=== PATIENT | female | born 1975 | race Caucasian/White ===

== ENCOUNTER → 2023-09-27 | Outpatient (CLI) | payer OTHER | LOC: LAB SHORT 13:22 → LAB 13:22 | DX: N93.9 Abnormal uterine and vaginal bleeding, unspecified (principal); N85.8 Other specified noninflammatory disorders of uterus | CPT/HCPCS: 88305 ==

== ENCOUNTER 2023-11-04 13:09 | Observation (INO) | payer OTHER ==
[~2023-11-04] VITALS: Ht 165.1 cm; Wt 99.8 kg
[~2023-11-04 13:09] MED LIST: Percocet 5-3251 EACH PO
[2023-11-04] MEDS ORDERED: Ondansetron HCl 2 MG / ML 2ML Vial IV ONE (13:25)
[2023-11-04] MEDS ORDERED: NS 1,000 ML IV SCH ×2 (13:25→14:20)
[2023-11-04] MEDS ORDERED: HYDROmorphone HCl/Pf 1MG SYR IV ONE (14:20)
[2023-11-04 14:27] LABS: BASOPHILS ABSOLUTE AUTO 0.08 K/mm3 (0.00-0.23); BASOPHILS PERCENT AUTO 1 % (0-2); EOSINOPHILS ABSOLUTE AUTO 0.04 K/mm3 (0.00-0.68); EOSINOPHILS PERCENT AUTO 1 % (0-6); Hematocrit 49.4 % (33.0-51.0); Hemoglobin 16.9 g/dL (11.5-16.0); IMMATURE GRAN ABSOLUTE AUTO 0.03 K/mm3 (0.00-0.10); IMMATURE GRAN PERCENT AUTO 0 % (0-1); LYMPHOCYTES ABSOLUTE AUTO 1.64 K/mm3 (0.84-5.20); LYMPHOCYTES PERCENT AUTO 19 % (21-46); MONOCYTES ABSOLUTE AUTO 0.42 K/mm3 (0.16-1.47); MONOCYTES PERCENT AUTO 5 % (4-13); Mean Corpuscular HGB 28.9 pg (26.0-34.0); Mean Corpuscular HGB Conc 34.2 g/dL (31.5-36.5); Mean Corpuscular Volume 85 fL (80-100); Mean Platelet Volume 9.6 fL (9.1-12.4); NEUTROPHILS ABSOLUTE AUTO 6.49 K/mm3 (1.96-9.15); NEUTROPHILS PERCENT AUTO 75 % (41-73); Platelet Count 354 K/mm3 (150-400); RDW Coefficient Variation 12.4 % (11.7-14.2); RDW Standard Deviation 37.8 fL (35.1-46.3); Red Blood Cell Count 5.84 M/mm3 (3.80-5.20)
[2023-11-04 14:46] LABS: Albumin, Blood 4.5 g/dL (3.4-5.0); Albumin/Globulin Ratio 1.2 (0.8-1.8); Bilirubin, Total 0.6 mg/dL (0.1-1.0); Calcium, Blood 9.7 mg/dL (8.5-10.1); Creatinine, Blood 0.65 mg/dL (0.40-1.00); Globulin, Blood 3.7 g/dL (2.2-4.0); Total Protein, Blood 8.2 g/dL (6.4-8.2)
[2023-11-04] MEDS ORDERED: Lactated Ringer's 1,000 ML IV SCH (16:25)
[2023-11-04] MEDS ORDERED: OxyCODONE 5 mg/Acetamin 325 mg TABLET PO PRN (16:25)
[2023-11-04] MEDS ORDERED: CeFAZolin Sodium 2,000 MG in NS 100 ML IV SCH (16:30)
[2023-11-04] MEDS ORDERED: Ketorolac Tromethamine 30mg Vial IV PRN (16:30)
[2023-11-04] MEDS ORDERED: Ondansetron HCl 2 MG / ML 2ML Vial IV PRN (16:30)
[2023-11-04 18:59] VITALS: BP 152/98
[2023-11-04 19:59] VITALS: BP 128/72
[2023-11-04] MEDS ORDERED: LEVOTHYROXINE50 MC9 PO (22:50)
[2023-11-04] MEDS ORDERED: LIOT5 PO (22:51)
[2023-11-04] MEDS ORDERED: PROG100 PO (22:53)
[2023-11-05] VITALS (13 sets, daily range): BP systolic 101–146; BP diastolic 48–97
[2023-11-05 05:13] LABS: Source, Urine Clean Catch
--- NOTE | 2023-11-05 05:15 | NUR ---
SHIFT SUMMARY PT ER ADMIT AT SHIFT CHANGE FOR ACUTE ANITA. PT HAS RESTED OFF AND ON T/O THE NIGHT. INTERMITTENT PAIN AND NAUSEA RELEIVED WITH MEDS PER EMAR. NO VOMITTING THIS SHIFT. PT HAS BEEN INDEPENDENT IN THE ROOM, AND HAS BEEN NPO SINCE MIDNIGHT FOR SURGERY TODAY. IVF INFUSING. BED IN LOWEST POSITION, CALL LIGHT WITHIN REACH.
[2023-11-05 05:38] LABS: Appearance, Urine Clear (Clear); Bilirubin, Urine Neg (Neg); Blood, Urine 5+ (Neg); Color, Urine Yellow (P-Yellow); Glucose Qualitative, Urine Neg (Neg); Ketones, Urine 2+ (Neg); Leukocyte Esterase, Urine Neg (Neg); Nitrite, Urine Neg (Neg); Protein, Urine Neg (Neg); Specific Gravity, Urine 1.005 (1.003-1.022); Urobilinogen, Urine NORM (Normal)
[2023-11-05 05:52] LABS: Bacteria Few /hpf; Red Blood Cells, Urine 0-2 /hpf (0-2); Squamous Epithelial Cells Mod /hpf (Few); White Blood Cells, Urine 0-2 /hpf (0-5)
[2023-11-05] MEDS ORDERED: Bupivacaine 0.5% HCl 5 MG/ML 30MLVIAL ONE (07:15)
[2023-11-05] MEDS ORDERED: CeFAZolin Sodium 1000 mg Vial ONE (07:59)
[2023-11-05] MEDS ORDERED: FentaNYL Citrate 50 MCG/ML 2 ML Injection ONE ×2 (07:59→09:01)
[2023-11-05] MEDS ORDERED: propofoL 20 ML IV ONE (07:59)
[2023-11-05] MEDS ORDERED: Dexamethasone Sod Phos 10 MG/ML 1ML VIAL ONE (07:59)
[2023-11-05] MEDS ORDERED: Ondansetron HCl 2 MG / ML 2ML Vial ONE (07:59)
[2023-11-05] MEDS ORDERED: Midazolam HCl 1MG / ML 2ML Vial ONE (08:00)
[2023-11-05] MEDS ORDERED: Sugammadex Sodium 200 MG/2ML SDV (100 MG/ML) ONE (08:00)
[2023-11-05] MEDS ORDERED: Rocuronium Bromide 10 MG/ML 5ML Injection IV ONE (08:40)
[2023-11-05] MEDS ORDERED: Lactated Ringer's 1,000 ML IV SCH (09:50)
[2023-11-05] MEDS ORDERED: Percocet 5-3251 EACH PO (10:32)
--- NOTE | 2023-11-05 12:25 | NUR ---
REPORT TO GARTH POTTER
--- NOTE | 2023-11-05 15:06 | NUR ---
DISCHARGE SUMMARY POD0 LAP ANITA, A/XO4, VSS, TOLERATING PO, VSS, AMBULATING WITH MINIMAL ASSISTANCE, VOIDING. DISCUSSED DISCHARGE INSTRUCTIONS WITH HER INCLUDING HOME CARE, MEDICATIONS, AND FOLLOW UP APPOINTMENTS. IV ACCESS REMOVED, PROVIDED HER WITH HER PAIN SCRIPT FROM SURGEON. NO QUESTIONS AT THIS TIME. RETURNED HOME MEDICATIONS SHE HAD BROUGHT IN, ASSISTED OUT BY [employer] INSPECTOR TO PRIVATE AUTO TO GO HOME.
== END 2023-11-05 14:26 | disposition home or self-care (01) ==
LOC: ER 13:09 → SURS 13:10
PROVIDERS: Student in an Organized Health Care Education/Training Program; ADMIT Surgery
PROC: 0FT44ZZ Resection of Gallbladder, Percutaneous Endoscopic Approach (ICD-10-PCS; principal; 2023-11-05 08:00)
DX: K80.64 Calculus of gallbladder and bile duct with chronic cholecystitis without obstruction (principal); K42.9 Umbilical hernia without obstruction or gangrene; Z88.5 Allergy status to narcotic agent; Z79.890 Hormone replacement therapy; Z79.899 Other long term (current) drug therapy
CPT/HCPCS: 74300; 76705; 80053; 81001; 81025; 83690; 85025; 88304; 96361; 96374; 96375; 96376; 99285-25; A9270; C1729; G0378; J0690; J1100; J1170; J1885; J2250; J2405; J2704; J3010; J7030; J7120

== ENCOUNTER 2023-12-15 07:00 | Day surgery (SDC) | payer OTHER ==
[2023-12-15] VITALS (18 sets, daily range): BP systolic 114–149; BP diastolic 70–92
[~2023-12-15] VITALS: Ht 165.1 cm; Wt 95.4 kg
[~2023-12-15 07:00] MED LIST changes: +CeFAZolin Sodium 2,000 MG in NS 100 ML IV SCH; +Dexamethasone Sod Phos 10 MG/ML 1ML VIAL ONE; +FentaNYL Citrate 50 MCG/ML 2 ML Injection ONE; +Ketorolac Tromethamine 30mg Vial ONE; +LEVOTHYROXINE50 MC9 PO; +LIOT5 PO; +Lactated Ringer's 1,000 ML IV SCH; +Lidocaine HCl 2% 20 ML MDV ONE; +Ondansetron HCl 2 MG / ML 2ML Vial ONE; +PROG100 PO; +Rocuronium Bromide 10 MG/ML 5ML Injection IV ONE; +Sugammadex Sodium 200 MG/2ML SDV (100 MG/ML) ONE; +propofoL 20 ML IV ONE
[2023-12-15] MEDS ORDERED: Midazolam HCl 1MG / ML 2ML Vial IV ONE (07:50)
[2023-12-15] MEDS ORDERED: Scopolamine Hydrobromide Patch TOP ONE (07:50)
[2023-12-15] MEDS ORDERED: Bupivacaine 0.5% Inj 10 ML Vial ONE (07:56)
[2023-12-15] MEDS ORDERED: Rocuronium Bromide 10 MG/ML 5ML Injection IV ONE (08:57)
[2023-12-15] MEDS ORDERED: FentaNYL Citrate 50 MCG/ML 2 ML Injection ONE ×3 (09:16→11:55)
[2023-12-15] MEDS ORDERED: OxyCODONE HCL 5 MG TAB PO PRN ×2 (11:35)
[2023-12-15] MEDS ORDERED: Lactated Ringer's 1,000 ML IV SCH (11:35)
[2023-12-15] MEDS ORDERED: Ondansetron HCl 2 MG / ML 2ML Vial IV PRN (11:35)
[2023-12-15] MEDS ORDERED: Simethicone 80 MG Chew PO PRN (11:35)
[2023-12-15] MEDS ORDERED: DiphenhydrAMINE HCL 25 MG Cap PO PRN (11:40)
[2023-12-15] MEDS ORDERED: Metoclopramide HCl 5MG / ML 2ML Vial IV PRN (11:40)
[2023-12-15] MEDS ORDERED: Naloxone HCl 0.4MG / ML 1ML Vial IV PRN (11:40)
[2023-12-15] MEDS ORDERED: HYDROmorphone HCl/Pf 1MG SYR IV PRN (11:40)
[2023-12-15] MEDS ORDERED: Acetaminophen 500 MG Tab PO SCH (12:00)
[2023-12-15] MEDS ORDERED: Ketorolac Tromethamine 30mg Vial IV SCH (12:00)
--- NOTE | 2023-12-15 16:01 | NUR ---
PT UP TO BATHROOM TO VOID, REPORTS VERY FAINT SPOTTING ON TOILET TISSUE WHEN WIPED SELF AFTER URINATING
--- NOTE | 2023-12-15 17:36 | NUR ---
PT REPORTS VERY SCANT PINK TINGED VAGINAL DRAINAGE AFTER WIPING WITH TISSUE PAPER. PT REPORTS PAIN IS A LITTLE HIGHER THAN HER DESIRED PAIN LEVEL ABD INCISIONS X4 WITH SCANT BLOODY DRAINAGE. JULIA PO FOOD AND FLUIDS WITHOUT NAUSEA. PT HAS NOT AMBULATED OTHER THAN TO RESTROOM. PT REQUESTS WISHES TO AMBULATE WHEN PAIN IS SLIGHTLY LESS
[2023-12-15] MEDS ORDERED: Liothyronine Sodium 5 MCG Tab PO SCH (21:00)
[2023-12-15] MEDS ORDERED: Progesterone, Micronized 100 MG Cap PO SCH (21:00)
[2023-12-16 03:16] VITALS: BP 107/67
[2023-12-16 05:32] LABS: BASOPHILS ABSOLUTE AUTO 0.06 K/mm3 (0.00-0.23); BASOPHILS PERCENT AUTO 0 % (0-2); EOSINOPHILS ABSOLUTE AUTO 0.06 K/mm3 (0.00-0.68); EOSINOPHILS PERCENT AUTO 0 % (0-6); Hematocrit 41.7 % (33.0-51.0); Hemoglobin 14.2 g/dL (11.5-16.0); IMMATURE GRAN ABSOLUTE AUTO 0.04 K/mm3 (0.00-0.10); IMMATURE GRAN PERCENT AUTO 0 % (0-1); LYMPHOCYTES ABSOLUTE AUTO 3.27 K/mm3 (0.84-5.20); LYMPHOCYTES PERCENT AUTO 22 % (21-46); MONOCYTES ABSOLUTE AUTO 1.01 K/mm3 (0.16-1.47); MONOCYTES PERCENT AUTO 7 % (4-13); Mean Corpuscular HGB 28.7 pg (26.0-34.0); Mean Corpuscular HGB Conc 34.1 g/dL (31.5-36.5); Mean Corpuscular Volume 84 fL (80-100); Mean Platelet Volume 9.5 fL (9.1-12.4); NEUTROPHILS ABSOLUTE AUTO 10.28 K/mm3 (1.96-9.15); NEUTROPHILS PERCENT AUTO 70 % (41-73); Platelet Count 285 K/mm3 (150-400); RDW Coefficient Variation 12.7 % (11.7-14.2); RDW Standard Deviation 38.6 fL (35.1-46.3); Red Blood Cell Count 4.94 M/mm3 (3.80-5.20); White Blood Cell Count 14.72 K/mm3 (4.00-11.30)
[2023-12-16] MEDS ORDERED: Levothyroxine Sodium 0.05 MG Tab PO SCH (06:00)
[2023-12-16 07:04] VITALS: BP 114/70
[2023-12-16] MEDS ORDERED: Ibuprofen 400 MG Tab PO SCH (08:00)
[2023-12-16] MEDS ORDERED: Polyethylene Glycol 3350 17 gm PO SCH (09:00)
[2023-12-16] MEDS ORDERED: Enoxaparin 40 MG/0.4 ML SYR SC SCH (09:00)
== END 2023-12-16 09:30 | disposition home or self-care (01) ==
LOC: ORSCMMR 07:00 → ORD 08:00 → ORSCMMR 08:00 → SURS 10:22 → ORSCMMR 12-16 09:30 → ORD 12-26 10:30
PROVIDERS: Obstetrics & Gynecology
PROC: 0UT9FZZ Resection of Uterus, Via Natural or Artificial Opening With Percutaneous Endoscopic Assistance (ICD-10-PCS; principal; 2023-12-15 08:00)
PROC: 8E0W4CZ Robotic Assisted Procedure of Trunk Region, Percutaneous Endoscopic Approach (ICD-10-PCS; principal; 2023-12-15 08:00)
PROC: 0TJB8ZZ Inspection of Bladder, Via Natural or Artificial Opening Endoscopic (ICD-10-PCS; principal; 2023-12-15 08:00)
PROC: 0UB77ZZ Excision of Bilateral Fallopian Tubes, Via Natural or Artificial Opening (ICD-10-PCS; principal; 2023-12-15 08:00)
DX: N93.9 Abnormal uterine and vaginal bleeding, unspecified (principal); D25.2 Subserosal leiomyoma of uterus; N88.8 Other specified noninflammatory disorders of cervix uteri; E03.9 Hypothyroidism, unspecified; F32.A Depression, unspecified; F41.9 Anxiety disorder, unspecified; J45.909 Unspecified asthma, uncomplicated; E66.9 Obesity, unspecified; Z68.35 Body mass index [BMI] 35.0-35.9, adult; Z79.899 Other long term (current) drug therapy
CPT/HCPCS: 36415; 85025; 86850; 86900; 86901; 88307; 94762; A9270; J0690; J1100; J1885; J2250; J2405; J2704; J3010; J7120

== ENCOUNTER 2024-02-28 11:25 | Day surgery (SDC) | payer OTHER ==
[~2024-02-28] VITALS: Ht 165.1 cm; Wt 96.1 kg
[~2024-02-28 11:25] MED LIST changes: -CeFAZolin Sodium 2,000 MG in NS 100 ML IV SCH; -Dexamethasone Sod Phos 10 MG/ML 1ML VIAL ONE; -FentaNYL Citrate 50 MCG/ML 2 ML Injection ONE; -Ketorolac Tromethamine 30mg Vial ONE; +Lactated Ringer's 1,000 ML IV ONE; -Lactated Ringer's 1,000 ML IV SCH; -Lidocaine HCl 2% 20 ML MDV ONE; -Ondansetron HCl 2 MG / ML 2ML Vial ONE; -Rocuronium Bromide 10 MG/ML 5ML Injection IV ONE; -Sugammadex Sodium 200 MG/2ML SDV (100 MG/ML) ONE; -propofoL 20 ML IV ONE; +propofoL 50 ML IV ONE
[2024-02-28] MEDS ORDERED: LINZESS145 MCG PO (11:40)
[2024-02-28] MEDS ORDERED: Lactated Ringer's 1,000 ML IV ONE (12:05)
--- NOTE | 2024-02-28 12:15 | NUR ---
02/28/24 1215 Angela Pollock PT. DENIES ANY PAIN.
[2024-02-28 13:59] VITALS: BP 125/82
== END 2024-02-28 13:37 | disposition home or self-care (01) ==
LOC: ORSCSDS 11:25
PROVIDERS: Specialist
PROC: 0DBP8ZX Excision of Rectum, Via Natural or Artificial Opening Endoscopic, Diagnostic (ICD-10-PCS; principal; 2024-02-28 12:45)
PROC: 0DBM8ZX Excision of Descending Colon, Via Natural or Artificial Opening Endoscopic, Diagnostic (ICD-10-PCS; principal; 2024-02-28 12:45)
PROC: 0DBN8ZX Excision of Sigmoid Colon, Via Natural or Artificial Opening Endoscopic, Diagnostic (ICD-10-PCS; principal; 2024-02-28 12:45)
DX: K59.00 Constipation, unspecified (principal); D12.4 Benign neoplasm of descending colon; K63.5 Polyp of colon; K62.1 Rectal polyp; K63.89 Other specified diseases of intestine; K57.30 Diverticulosis of large intestine without perforation or abscess without bleeding; K64.8 Other hemorrhoids; K21.9 Gastro-esophageal reflux disease without esophagitis; E78.5 Hyperlipidemia, unspecified; E03.9 Hypothyroidism, unspecified; Z79.899 Other long term (current) drug therapy; Z68.36 Body mass index [BMI] 36.0-36.9, adult
CPT/HCPCS: 88305; J2704; J7120